=== PATIENT | male | born 1970 | race Caucasian/White ===

== ENCOUNTER → 2020-10-31 | Outpatient (CLI) | payer OTHER ==
--- NOTE | 2020-10-31 17:03 | RAD ---
Exam performed: Right foot 3 views. Indication: Right foot diabetic ulcer for 3 weeks Date of Service: 10/31/2020 4:50 PM . Comparison: None available Three views right foot findings: Normal alignment is preserved. There is no acute fracture or dislocation. There is no bony erosion or periosteal reaction. There is mild soft tissue swelling, no definite foreign bodies identified. Impression: 1. Mild soft tissue swelling without underlying bony abnormality . Electronically signed by: Pauline Quinn MD (10/31/2020 5:00 PM) [id number]
== END ==
LOC: PMG 16:40
PROVIDERS: ATTEND Family Medicine
DX: L97.519 Non-pressure chronic ulcer of other part of right foot with unspecified severity (principal); M79.89 Other specified soft tissue disorders
CPT/HCPCS: 73630